=== PATIENT | female | born 1970 | race Caucasian/White ===

== ENCOUNTER → 2018-09-12 | Day surgery (SDC) | payer OTHER | END | disposition home or self-care (01) | LOC: CIR.AMB 08:15 | DX: N84.1 Polyp of cervix uteri (principal) ==

== ENCOUNTER 2022-06-28 06:37 | Day surgery (SDC) | payer OTHER ==
[~2022-06-28] VITALS: Ht 180.3 cm; Wt 70.8 kg
== END 2022-06-28 14:50 | disposition home or self-care (01) ==
LOC: CIR.AMB 06:37
PROVIDERS: ATTEND Specialist
DX: N60.92 Unspecified benign mammary dysplasia of left breast (principal); N60.32 Fibrosclerosis of left breast; N60.82 Other benign mammary dysplasias of left breast; R92.1 Mammographic calcification found on diagnostic imaging of breast; Z86.16 Personal history of COVID-19; Z20.822 Contact with and (suspected) exposure to COVID-19
CPT/HCPCS: 19125; 19281; L8699

== ENCOUNTER 2023-04-07 08:34 | Outpatient (CLI) | payer OTHER | END 2023-04-07 08:58 | disposition home or self-care (01) | LOC: TOM 08:34 | PROVIDERS: ATTEND Specialist | DX: R22.2 Localized swelling, mass and lump, trunk (principal) ==

== ENCOUNTER 2023-06-26 10:01 | Outpatient (CLI) | payer OTHER | END 2023-06-26 10:04 | disposition home or self-care (01) | LOC: SONOGRAMA 10:01 | PROVIDERS: ATTEND Pathology Anatomic Pathology & Clinical Pathology | DX: D34 Benign neoplasm of thyroid gland (principal); E07.89 Other specified disorders of thyroid; E04.1 Nontoxic single thyroid nodule ==